=== PATIENT | female | born 1940 | race Caucasian/White ===

== ENCOUNTER 2022-08-26 09:47 | Outpatient (CLI) | payer MEDICARE, BC, SELFPAY ==
--- NOTE | 2022-08-26 | CRLHL7_ITS ---
For Patients: As a result of the Century Cures Act, medical imaging exams and procedure reports are released immediately into your electronic medical record. You may view this report before your referring provider. If you have questions, please contact your health care provider. Indication: MENINGIOMA Technique: Noncontrast sagittal T1, axial FLAIR, T2 turbo spine echo, and diffusion weighted images. Supplemental post contrast T1 weighted axial and coronal sequences are provided after administration of 15 mL gadolinium-based IV contrast. Comparison: 02/06/2014 MRI Findings: The ventricles, sulci and gyri are normal size, shape and contour for age. 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 The midline structures are centrally located with no evidence of shift. There are no suspicious intra or extra-axial fluid collections. No evidence of restricted diffusion to suggest acute ischemia. Punctate focus of susceptibility artifact in the left frontal lobe consistent with remote microhemorrhage. Enlargement of the dural-based extra-axial enhancing mass along the right superior frontal gyrus with increased invasion of the left frontal calvarium diploic space without extension through the outer table. The mass measures 1.6 cm TR x 2 cm craniocaudal x 1.7 cm AP, previously 1.3 x 1.5 x 1.2 cm. Expected flow voids in the cavernous carotids and basilar artery. Impression: 1. Mild enlargement of the meningioma along the right frontal convexity with increased invasion of the right frontal bone. Stable minimal mass effect on the underlying cortex without parenchymal edema. 2. 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 Dictated by Donal Zabala MD @ 08/26/2022 3:43:26 PM (Electronically Signed)
== END 2022-08-26 09:48 | disposition home or self-care (01) ==
LOC: MRI 09:49
PROVIDERS: PCP Internal Medicine; Visit Provider Internal Medicine
DX: D32.9 Benign neoplasm of meninges, unspecified (principal)
CPT/HCPCS: 70553; A9575